=== PATIENT | male | born 1990 | race Caucasian/White ===

== ENCOUNTER 2020-05-04 14:41 | Emergency (ER) | payer MEDICAID ==
[~2020-05-04] VITALS: Ht 182.9 cm; Wt 85.9 kg
[2020-05-04 15:05] VITALS: BP 149/81
[2020-05-04] MEDS ORDERED: HYDROcodone/acetaminophen 5mg/325mg tablet PO ONE (16:30)
[2020-05-04] MEDS ORDERED: HYDR-4383 PO ×2 (16:32→16:36)
== END 2020-05-04 17:07 | disposition home or self-care (01) ==
LOC: ER 14:43
DX: S92.241A Displaced fracture of medial cuneiform of right foot, initial encounter for closed fracture (principal); S92.514A Nondisplaced fracture of proximal phalanx of right lesser toe(s), initial encounter for closed fracture; M79.671 Pain in right foot; H54.40 Blindness, one eye, unspecified eye; Z79.899 Other long term (current) drug therapy; W19.XXXA Unspecified fall, initial encounter; Y93.89 Activity, other specified; Y92.89 Other specified places as the place of occurrence of the external cause; Y99.8 Other external cause status
CPT/HCPCS: 73630; 99283